=== PATIENT | male | born 1950 | race Caucasian/White ===

== ENCOUNTER 2022-04-18 17:41 | Emergency (ER) | payer BC, OTHER ==
[~2022-04-18] VITALS: Ht 188 cm; Wt 83.9 kg
[~2022-04-18 17:41] MED LIST: HYDR-3974 PO; SULF1TAB48 PO
--- NOTE | 2022-04-18 17:45 | NUR ---
RECEIVED PT 71 YERS MALE WALKING IN C/O CUT TIP LT THUMP WITH TABLE SAW WITH BLEEDING
--- NOTE | 2022-04-18 17:50 | NUR ---
IRRIGATED AND SUCKED IN IODIN SOLUATION BY ED TACH
--- NOTE | 2022-04-18 18:45 | NUR ---
X RAY DONE AT BED SIDE
[2022-04-18] MEDS ORDERED: TDAP [DIPH/PERTUSSIS/TET] 0.5 ML VIAL IM ONE ×2 (18:48→19:00)
[2022-04-18] MEDS ORDERED: HYDROMORPHONE 1 MG/1 ML DISP.SYRIN ONE (18:48)
[2022-04-18] MEDS ORDERED: HYDROMORPHONE 1 MG/1 ML DISP.SYRIN IM ONE (19:00)
--- NOTE | 2022-04-18 19:43 | NUR ---
HAND OFF JESUS MANUEL GILLETTE
[2022-04-18] MEDS ORDERED: LIDOCAINE 2% 20 ML MDV ONE (19:46)
--- NOTE | 2022-04-18 19:50 | NUR ---
RECEIVED PT IN ER BED 1. PT IS ALERT AND ORIENTED. RR EVEN AND NON LABORED. WOUND OPEN TO AIR, PENDING XRAY RESULTS. CONNECTED TO MONITOR. VSS. FAMILY AT BEDSIDE
[2022-04-18] MEDS ORDERED: CEPH500C2 PO ×2 (20:14→20:19)
[2022-04-18] MEDS ORDERED: IBUP-1955 PO ×2 (20:14→20:19)
[2022-04-18] MEDS ORDERED: HYDR-3980 PO ×2 (20:14→20:19)
--- NOTE | 2022-04-18 20:35 | NUR ---
WOUND CARE PROVIDED
--- NOTE | 2022-04-18 20:35 | NUR ---
Patient discharged to home in stable condition. Written and verbal after care instructions given. Patient verbalizes understanding of instruction.
[2022-04-18 20:43] VITALS: BP 176/88
== END 2022-04-18 20:43 | disposition home or self-care (01) ==
LOC: ER 17:53
DX: S61.102A Unspecified open wound of left thumb with damage to nail, initial encounter (principal); F17.200 Nicotine dependence, unspecified, uncomplicated; Z79.899 Other long term (current) drug therapy; W27.0XXA Contact with workbench tool, initial encounter; Y93.89 Activity, other specified; Y92.89 Other specified places as the place of occurrence of the external cause; Y99.8 Other external cause status
CPT/HCPCS: 99284; 96372; 90471; 90715; 73140; A6403; J3490; J1170